=== PATIENT | female | born 1955 | race Caucasian/White ===

== ENCOUNTER 2023-11-13 01:51 | Day surgery (SDC) | payer MEDICARE, SELFPAY ==
--- NOTE | 2023-11-06 09:38 | PC.NURSE ---
Report to the Outpatient Waiting Room, entrance under the green pavilion located off [facility], at time 1045 on date _11/13/23 . Planned Procedure Time: __1245 . Time changes happen often and if your time is changed the preop area will call you the afternoon before. - You and your visitor will be asked to self-screen and do not enter if you have any COVID symptoms. - A mask is optional within the hospital at this time. Patients may have clear liquids (water, carbonated beverages, clear teas, apple juice) until 3 hours prior to surgery ( 9:45 AM )with a maximum of 20 ounces. - No food from midnight until time of surgery - Infants may have breast milk until 4 hours before surgery, infant formula 6 hours prior to surgery. - Children will be allowed to drink immediately following surgery. If applicable, please bring a bottle or sippy cup to assist with drinking. Juice, water, soda, and popsicles are readily available. For infants on formula, please bring formula the day of surgery. Pacifiers are allowed. Take the following medications with a SIP of water the morning of surgery: __NONE DO NOT STOP ANY OF YOUR OTHER PRESCRIPTION MEDICATIONS PRIOR TO SURGERY ?EXCEPT THE FOLLOWING Medications to discontinue per physician __PT STATES LAST DOSE ASPIRIN 10/29/23 (STOPPED ON HER OWN) ALL VITAMINS AND SUPPLEMENTS 3 DAYS PRE OP LAST DOSE 11/09/23 Please no make-up, nail urdu, hairspray, perfume, deodorant, or body powder the day of surgery. No jewelry (including any body piercings) or valuables the day of surgery, leave them at home. Please take a shower or bath the night before, or the morning of, surgery with an antibacterial soap. Wear comfortable, loose fitting clothing. Children are encouraged to wear pajamas. - Jewelry must be removed prior to entering the operating room. Rings and piercings that are not removed may be cut off. - The hospital will not accept responsibility for valuables. - Please leave all valuables, including medications, at home the day of surgery. If you are going home after surgery, a licensed truss driver helper must drive you home. - NO public transportation without another adult if you receive anesthesia. - We recommend that an adult stay with you for 24 hours following discharge. - We also recommend that you do not drive, make important decision, drink alcoholic beverages, or take any drugs that were not prescribed by your health care provider for at least 24 hours after your discharge time. For Pediatric surgeries, we recommend two adults accompany the child home. Follow any additional instructions given to you from your surgeon. If you or anyone in your household have experienced Covid symptoms in the past week, please notify your surgeon or the nurse liaison at the phone number below for possible testing. Telephone instructions given to __PATIENT and asked if any additional questions and then verbalized understanding. Patient advised to call surgeon office or pre surgery nurse liaison [phone] if any additional questions.
[2023-11-06 09:50] VITALS: BMI 33.8
--- NOTE | 2023-11-13 08:16 | WPDHPUPDATE1 ---
History and Physical Update Update Date/Time: 11/13/23 08:16 History and Physical has been reviewed, including an updated exam of the patient. There are NO changes in the patient's condition. Risks, benefits, and alternatives have been discussed and questions answered. Patient agrees to proceed with procedure.
--- NOTE | 2023-11-13 08:16 | PM.HPGS ---
History of Present Illness History of Present Illness Consent: Risks, benefits, and alternatives have been discussed and questions answered. Patient agrees to proceed with procedure. Chief complaint: post menopausal bleeding Narrative: Isela Monroe is a 68 year old female with 2 episodes of very light vaginal bleeding. Pelvic ultrasound showed an irregular heterogeneous echotexture measuring 1.5cm with vascular flow. It was recommended to undergo D&C hysteroscopy for further evaluation. Possible pathology was discussed. Risks of infection, bleeding, perforation, and fluid imbalance are reviewed. Patient voices understanding and agrees to proceed. Review of Systems Review of Systems: not repeated day of surgery; patient states no changes in status [facility] Past Medical History Medical History (Updated 11/13/23 @ 08:23 by Anuja Jordan MD) Breast cancer 1998 status post right mastectomy, chemotherapy, radiation, and 5 years of tamoxifen Elevated cholesterol Lichen sclerosus Surgical History Surgical History (Updated 11/13/23 @ 08:20 by Anuja Jordan MD) H/O right mastectomy 1998 Family History Family History (Updated 05/20/16 @ 23:19 by DOCTOR UNKNOWN) Father Family history of diabetes mellitus in first degree relative Sibling Family history of lung cancer Social History Social History Smoking packs per day: 1 Smoking cigarettes per day: 20.0 Years smoked: 20 Smoking pack-years: 20.00 Smoking status: Former smoker Tobacco type: cigarettes Smoking end date: 10/23/99 Alcohol intake: current Living arrangements: with family Spiritual care concerns: No Meds Home Medications and Allergies Home Medications Medication Instructions Recorded Confirmed Type aspirin 81 mg tablet,delayed 81 mg PO DAILY 11/06/23 11/06/23 History release calcium carbonate 600 mg-vitamin 1 tablet PO BID 11/06/23 11/06/23 History D3 10 mcg (400 unit) tablet (Calcium 600 + D(3)) cholecalciferol (vitamin D3) 25 25 mcg PO DAILY 11/06/23 11/06/23 History mcg (1,000 unit) tablet gabapentin 100 mg capsule 100 mg PO PRN PRN RESTLESS LEG 11/06/23 11/06/23 History SYNDROME ukzqfwqb-iffl-sale 8 mg-folic 400 1 tablet PO DAILY 11/06/23 11/06/23 History mcg-K 50 mcg-lutein 300 mcg tablet (Centrum Silver Women) rosuvastatin 10 mg tablet 10 mg PO EVERY OTHER DAY 11/06/23 11/06/23 History selenium 200 mcg tablet 200 mcg PO DAILY 11/06/23 11/06/23 History zinc 50 mg tablet 50 mg PO DAILY 11/06/23 11/06/23 History Allergies Allergy/AdvReac Type Severity Reaction Status Date / Time penicillin G Allergy Unknown Rash Verified 11/06/23 09:18 Exam Const: General: healthy appearing and alert Orientation/consciousness: patient oriented x3 Resp: Effort & Inspection: normal respiratory effort GI: GI Palp: Yes Soft to palpation, No Tenderness to palpation present (GI) and No Palpable mass present : External Female Exam: other ( bilateral labial melting) Speculum Exam - Vagina: vagina atrophic Speculum Exam - Cervix: normal appearance of the cervix Bimanual exam- vagina & uterus: uterine size normal and consistency normal Bimanual Exam- Adnexa, other: normal adnexae and No adnexal tenderness Neuro: General: patient oriented x3 Assessment and Plan Assessment and plan (1) Post-menopausal bleeding: Code(s): N95.0 - Postmenopausal bleeding Status: Acute Assessment and Plan: plan to proceed D&C hysteroscopy
[2023-11-13 09:47] VITALS: BP 150/79; PULSE 89; RESP 18; TEMP 36.6; O2SAT 99
[2023-11-13] MEDS: LACTATED RINGERS 1,000 ML 30 ML IV CONT (09:59)
[2023-11-13] MEDS: ACETAMINOPHEN 500 MG TABLET 1000 MG PO (10:06)
--- NOTE | 2023-11-13 10:08 | WPDANESEPPF ---
Anes - Initial Pre Proc Eval Procedure: Operation Date: 11/13/23 12:00 Proposed Procedures p Hysteroscopy Dilation and Curettage - Anuja Jordan MD Date/Time: 11/13/23 10:08 Surgeon: Anuja Jordan MD Pre Op Diagnosis: post menopausal bleeding Patient Data Age: 68 Gender: F Height: 1.57 m Weight: 91.85 kg Last Vital Signs Temp 36.6 C 11/13/23 09:47 Pulse 89 11/13/23 09:47 Resp 18 11/13/23 09:47 BP 150/79 H 11/13/23 09:47 Pulse Ox 99 11/13/23 09:47 O2 Del Method Room Air 11/13/23 09:47 Allergies Allergy/AdvReac Type Severity Reaction Status Date / Time penicillin G Allergy Unknown Rash Verified 11/13/23 10:05 Home Medications Medication Instructions Recorded Confirmed Type aspirin 81 mg tablet,delayed 81 mg PO DAILY 11/06/23 11/13/23 History release calcium carbonate 600 mg-vitamin 1 tablet PO BID 11/06/23 11/13/23 History D3 10 mcg (400 unit) tablet (Calcium 600 + D(3)) cholecalciferol (vitamin D3) 25 25 mcg PO DAILY 11/06/23 11/13/23 History mcg (1,000 unit) tablet gabapentin 100 mg capsule 100 mg PO PRN PRN RESTLESS LEG 11/06/23 11/13/23 History SYNDROME pzadwpna-ivcj-wsgc 8 mg-folic 400 1 tablet PO DAILY 11/06/23 11/13/23 History mcg-K 50 mcg-lutein 300 mcg tablet (Centrum Silver Women) rosuvastatin 10 mg tablet 10 mg PO EVERY OTHER DAY 11/06/23 11/13/23 History selenium 200 mcg tablet 200 mcg PO DAILY 11/06/23 11/13/23 History zinc 50 mg tablet 50 mg PO DAILY 11/06/23 11/13/23 History Patient hx anesthesia problems: none Family hx anesthesia problems: none Results Review: All pre-operative results and documents have been reviewed as part of the pre-operative evaluation. [facility] Past Medical History Medical History Breast cancer 1999 status post right mastectomy, chemotherapy, radiation, and 5 years of tamoxifen Elevated cholesterol Lichen sclerosus Surgical History Surgical History H/O right mastectomy 1998 Family History Family History Father Family history of diabetes mellitus in first degree relative Sibling Family history of lung cancer Social History Social History Smoking packs per day: 1 Smoking cigarettes per day: 20.0 Years smoked: 20 Smoking pack-years: 20.00 Smoking status: Former smoker Tobacco type: cigarettes Smoking end date: 10/23/99 Alcohol intake: current Living arrangements: with family Spiritual care concerns: No Anes - Eval Final PreProcedure Day of Procedure 11/13/23 10:08 Patient weight: obese Heart: regular rate and rhythm Lungs: clear to auscultation Airway: Mallampati scale class II Neurological: alert and oriented Last oral intake: >/= 8 hours ASA classification: III Emergent: no Anesthetic plan: proceed Anesthesia type and monitoring: general GIVS and standard monitoring Results Review: All pre-operative results and documents have been reviewed as part of the pre-operative evaluation. Informed Consent: The patient's anesthetic plan and its attendant risks and benefits were discussed with the patient/family/POA. Questions were solicited and answers provided to the satisfaction of the patient/family/POA.
[2023-11-13 11:11] VITALS: BP 115/80; PULSE 95; RESP 12; O2SAT 95
--- NOTE | 2023-11-13 11:15 | W.PM.PROC2 ---
Procedure Note - Detailed Date of Procedure 11/13/23 Pre-op Diagnosis post menopausal bleeding Post-op Diagnosis Same Procedure Performed D&C hysteroscopy with resection of polyps Surgeon Anuja Jordan MD Anesthesia MAC Findings The uterus sounds to 9cm. There are multiple, vascular, translucent polyps. The endometrium appears grossly atrophic otherwise. Description of Procedure The patient is taken to the operating room and placed under anesthesia in the dorsal lithotomy position. She was prepped and draped in the usual sterile fashion. [place] speculum was placed in the vagina and the cervix grasped on the anterior lip with a tenaculum. The uterus is sounded to 9cm. The hysteroscope was placed and with the above-stated findings the Aveeta resection device is placed. All polyps are removed under direct visualization. The hysteroscope was then removed and the uterus was sharply curetted until a good uterine cry was noted in all areas. Minimal material is obtained during this process consistent with the visual appearance. All instruments were then removed. The patient was awakened from anesthesia and taken to recovery in stable condition. Sponge, needle, and instrument counts are correct per the OR staff. Estimated Blood Loss 5 Drains No Packing No Pathology Yes ( endometrial shavings and curettings) Complications No immediate complications Condition Stable Disposition PACU
[2023-11-13 11:45] VITALS: BP 121/65; PULSE 73; RESP 16
== END 2023-11-13 12:10 | disposition home or self-care (01) ==
PROVIDERS: PCP Family Medicine; Visit Provider Obstetrics & Gynecology Gynecology
PROC: 0U5B8ZZ Destruction of Endometrium, Via Natural or Artificial Opening Endoscopic (ICD-10-PCS; CPT 58563; principal; 2023-11-13 12:00)
DX: N95.0 Postmenopausal bleeding (principal); N84.0 Polyp of corpus uteri; E78.00 Pure hypercholesterolemia, unspecified; E66.9 Obesity, unspecified; Z68.37 Body mass index [BMI] 37.0-37.9, adult; Z90.11 Acquired absence of right breast and nipple; Z87.891 Personal history of nicotine dependence; Z85.3 Personal history of malignant neoplasm of breast; Z80.1 Family history of malignant neoplasm of trachea, bronchus and lung; Z79.82 Long term (current) use of aspirin
CPT/HCPCS: 58558; 88305; A9270; J1100; J2250; J2405; J2704; J3010; J7120

== ENCOUNTER 2024-08-02 13:26 | Outpatient (CLI) | payer MEDICARE, OTHER, SELFPAY ==
--- NOTE | 2024-08-02 13:44 | ECG_ITS ---
Test Date: 2024-08-02 13:48:53 Measurements Intervals [place] Rate: 82 P: 44 TN: 140 QRS: -4 QRSD: 85 T: 25 QT: 381 QTc: 445 Interpretive Statements SINUS RHYTHM LOW QRS VOLTAGE IN PRECORDIAL LEADS [QRS DEFLECTION < 1.0 mV IN CHEST LEADS] Poor R wave progression No previous ECG available for comparison Electronically Signed On 08-03-2024 08:23:19 CDT by Valerie Doty M.D.
== END 2024-08-02 13:27 | disposition home or self-care (01) ==
LOC: ANHSURGERY 13:32
PROVIDERS: PCP Family Medicine; Visit Provider Obstetrics & Gynecology
DX: E78.5 Hyperlipidemia, unspecified (principal)
CPT/HCPCS: 93005

== ENCOUNTER 2024-08-07 02:26 | Day surgery (SDC) | payer MEDICARE, OTHER, SELFPAY ==
[2024-08-01 13:09] VITALS: BMI 36.6
--- NOTE | 2024-08-01 13:16 | PC.NURSE ---
Report to the Outpatient Waiting Room, entrance under the green pavilion located off [facility], at time _0630_ on date _[id number]_. Planned Procedure Time: _0830_.? Time changes happen often and if your time is changed the preop area will call you the afternoon before. - You and your visitor will be asked to self-screen and do not enter if you have any COVID symptoms. Please call surgeon if you need to reschedule. - A mask is optional within the hospital at this time. Patients may have clear liquids (water, carbonated beverages, clear teas, apple juice) until 3 hours prior to surgery with a maximum of 20 ounces. - No food from midnight until time of surgery and no smoking Take only the following medications with a SIP of water on the morning of surgery: __None DO NOT STOP ANY OF YOUR OTHER PRESCRIPTION MEDICATIONS PRIOR TO SURGERY EXCEPT THE FOLLOWING Medications to discontinue per physician ___All vitamins Date to take last vakb___[id number] Hurd's office regarding Aspirin. Please no make-up, nail georgian, hairspray, perfume, deodorant, or body powder the day of surgery.? No jewelry (including any body piercings) or valuables the day of surgery, leave them at home.? Please take a shower or bath the night before, or the morning of, surgery with an antibacterial soap.? Wear comfortable, loose fitting clothing.? - Jewelry must be removed prior to entering the operating room.? Rings and piercings that are not removed may be cut off. - The hospital will not accept responsibility for valuables.? - Please leave all valuables, including medications, at home the day of surgery. If you are going home after surgery, a licensed light truck driver must drive you home.? - NO public transportation without another adult if you receive anesthesia. - We recommend that an adult stay with you for 24 hours following discharge. - We also recommend that you do not drive, make important decision, drink alcoholic beverages, or take any drugs that were not prescribed by your health care provider for at least 24 hours after your discharge time. Follow any additional instructions given to you from your surgeon. Telephone instructions given to __Isela___and asked if any additional questions and then verbalized understanding. Patient advised to call surgeon office or pre surgery nurse liaison [phone] if any additional questions.
[2024-08-07] VITALS (9 sets, daily range): BP systolic 113–139; BP diastolic 51–76; PULSE 70–89; RESP 14–20; TEMP 36.2–36.4; O2SAT 92–100
[2024-08-07] MEDS: ACETAMINOPHEN 500 MG TABLET 1000 MG PO (06:50)
[2024-08-07] MEDS: LACTATED RINGERS 1,000 ML 30 ML IV CONT (07:04)
--- NOTE | 2024-08-07 07:47 | WPDANESEPPF ---
Anes - Initial Pre Proc Eval Procedure: Operation Date: 08/07/24 08:30 Proposed Procedures p Laparoscopic Left Salpingo-oophorectomy - Abelardo Hurd MD Date/Time: 08/07/24 07:47 Surgeon: Abelardo Hurd MD Pre Op Diagnosis: Cyst Left Ovary Patient Data Age: 69 Gender: F Height: 1.57 m Weight: 93.4 kg Last Vital Signs Temp 36.2 C L 08/07/24 07:05 Pulse 89 08/07/24 07:05 Resp 16 08/07/24 07:05 BP 139/76 08/07/24 07:05 Pulse Ox 98 08/07/24 07:05 O2 Del Method Room Air 08/07/24 07:05 Allergies Allergy/AdvReac Type Severity Reaction Status Date / Time penicillin G Allergy Unknown Rash Verified 08/07/24 06:47 Home Medications Medication Instructions Recorded Confirmed Type aspirin 81 mg tablet,delayed 81 mg PO DAILY 11/06/23 08/07/24 History release calcium 600 mg (as 1 tablet PO BID 11/06/23 08/07/24 History carbonate)-vitamin D3 10 mcg (400 unit) tablet (Calcium 600 + D(3)) cholecalciferol (vitamin D3) 25 25 mcg PO DAILY 11/06/23 08/07/24 History mcg (1,000 unit) tablet gabapentin 100 mg capsule 100 mg PO PRN PRN RESTLESS LEG 11/06/23 08/07/24 History SYNDROME wagztidd-bhwv-avlx 8 mg-folic 400 1 tablet PO DAILY 11/06/23 08/07/24 History mcg-K 50 mcg-lutein 300 mcg tablet (Centrum Silver Women) rosuvastatin 10 mg tablet 10 mg PO EVERY OTHER DAY 11/06/23 08/07/24 History magnesium 250 mg tablet 250 mg PO DAILY 08/01/24 08/07/24 History Patient hx anesthesia problems: none Family hx anesthesia problems: none Results Review: All pre-operative results and documents have been reviewed as part of the pre-operative evaluation. [facility] Past Medical History Medical History Breast cancer 1999 status post right mastectomy, chemotherapy, radiation, and 5 years of tamoxifen Elevated cholesterol Lichen sclerosus Surgical History Surgical History H/O right mastectomy 1998 Family History Family History Father Family history of diabetes mellitus in first degree relative Sibling Family history of lung cancer Social History Social History Smoking packs per day: 1 Smoking cigarettes per day: 20.0 Years smoked: 20 Smoking pack-years: 20.00 Smoking status: Former smoker Tobacco type: cigarettes Smoking end date: 08/01/09 Alcohol intake: current Substance use type: marijuana Other substance usage details: cbd gummie at night not daily. Living arrangements: with family Spiritual care concerns: No Anes - Eval Final PreProcedure Day of Procedure 08/07/24 07:47 Patient weight: obese Heart: regular rate and rhythm Lungs: clear to auscultation Airway: Mallampati scale class II Neurological: alert and oriented Last oral intake: >/= 8 hours ASA classification: III Emergent: no Anesthetic plan: proceed Anesthesia type and monitoring: general ETT and standard monitoring Results Review: All pre-operative results and documents have been reviewed as part of the pre-operative evaluation. Informed Consent: The patient's anesthetic plan and its attendant risks and benefits were discussed with the patient/family/POA. Questions were solicited and answers provided to the satisfaction of the patient/family/POA.
[2024-08-07] MEDS: KETOROLAC 15 MG/ML VIAL (*BKC) IV PUSH (07:57)
--- NOTE | 2024-08-07 08:06 | PM.IMHP ---
H&P: HPI History of Present Illness Date/Time: 08/07/24 08:06 Chief Complaint: Ovarian cyst Narrative: 61-year-old female with left ovarian cyst. We have agreed to perform left salpingo-oophorectomy. The patient understands the details of the procedure. The procedure has been explained in detail. She understands the risks. She understands that injuries may occur that result in hospitalization, more surgery, and severe illness. She understands risk of hemorrhage and infection. She denies any chest pain or shortness of breath. She denies any nausea, vomiting, fever, chills. Review of Systems Review of Systems: All systems reviewed & are unremarkable except as noted in HPI and below Constitutional: Constitutional: Denies chills, Denies fatigue, Denies fever(s) and Denies weakness Eyes: Eyes: Denies blurry vision, Denies change in vision, Denies loss of peripheral vision, Denies loss of vision, Denies other visual disturbances and Denies eye pain ENT: Denies vertigo, Denies dizziness, Denies hearing loss, Denies mouth pain, Denies nasal obstruction, Denies neck mass and Denies neck pain Cardiovascular: Cardiovascular: Denies chest pain, Denies diaphoresis, Denies syncope, Denies leg edema and Denies dyspnea Respiratory: Respiratory: Denies chest congestion, Denies cough, Denies hemoptysis, Denies dyspnea and Denies wheezing Gastrointestinal: Gastrointestinal: Denies abdominal pain, Denies constipation, Denies diarrhea, Denies nausea and Denies vomiting Genitourinary: Genitourinary: Denies hematuria, Denies change in libido, Denies nocturia, Denies genital lesions, Denies flank pain and Denies urinary urgency Musculoskeletal: Musculoskeletal: Denies abnormal gait, Denies back pain, Denies myalgias, Denies arthralgias, Denies joint swelling, Denies muscle weakness and Denies neck pain Integumentary/Breasts: Skin/Breast: Denies swelling, Denies breast pain, Denies breast mass, Denies dry skin, Denies nipple discharge, Denies unusual bruising and Denies jaundice Neurologic: Denies Neuro-related abnormal movements, Denies Abnormal speech present, Denies abnormal gait, Denies behavioral changes, Denies confusion, Denies vertigo, Denies dizziness, Denies syncope, Denies loss of vision, Denies memory loss, Denies convulsions and Denies weakness Psychiatric: Psychiatric: Denies abnormal sleep pattern, Denies behavioral changes, Denies change in libido, Denies confusion, Denies depression, Denies anhedonia and Denies memory loss Endocrine: Endocrine: Reports no additional endocrine complaints, Denies change in libido and Denies fatigue Hematologic/Lymphatic: Hematologic/Lymphatic: Reports no additional hematologic/lymphatic complaints Allergic/Immunologic: Allergic/Immunologic: Reports no additional allergic/immunologic complaints and Denies wheezing PMFSH Past Medical History Medical History Breast cancer 1998 status post right mastectomy, chemotherapy, radiation, and 5 years of tamoxifen Elevated cholesterol Lichen sclerosus Surgical History Surgical History H/O right mastectomy 1998 Family History Family History Father Family history of diabetes mellitus in first degree relative Sibling Family history of lung cancer Social History Social History Smoking packs per day: 1 Smoking cigarettes per day: 20.0 Years smoked: 20 Smoking pack-years: 20.00 Smoking status: Former smoker Tobacco type: cigarettes Smoking end date: 08/01/09 Alcohol intake: current Substance use type: marijuana Other substance usage details: cbd gummie at night not daily. Living arrangements: with family Spiritual care concerns: No Meds Home Medications and Allergies Home Medications Medication Instruct
--- NOTE | 2024-08-07 08:11 | WPDHPUPDATE1 ---
History and Physical Update Update Date/Time: 08/07/24 08:11 History and Physical has been reviewed, including an updated exam of the patient. There are NO changes in the patient's condition. Risks, benefits, and alternatives have been discussed and questions answered. Patient agrees to proceed with procedure.
--- NOTE | 2024-08-07 09:22 | W.PM.PROC2 ---
Procedure Note - Detailed Date of Procedure 08/07/24 Pre-op Diagnosis Cyst Left Ovary Post-op Diagnosis Same Procedure Performed Laparoscopic left salpingo-oophorectomy Surgeon Abelardo Hurd MD Anesthesia General Indications Pelvic pain Description of Procedure The patient was taken to the operating room. She was prepped and draped in the dorsal lithotomy position after induction general anesthesia. A 5 mm incision was made with a scalpel on the abdominal skin in the left upper quadrant of the abdomen. A 5 mm trocar was inserted into the intra-abdominal cavity under direct visualization the scope. In the same fashion a 11 mm left lower quadrant trocar was inserted and a 11 mm infraumbilical trocar was inserted. who left ovarian salpingo-oophorectomy was performed. The ovary was raised. The the infundibulopelvic ligament was identified, cauterized, transected with LigaSure cautery. The paraovarian tissue was dissected out carefully. Suspensory ligament the ovary the surrounding blood vessels were cauterized transected with LigaSure cautery. The ovaries placed in endobag along with cyst of course. Endobag was opened to the outside of the abdomen through the left lower quadrant trocar site. The fascia had to be expanded to facilitate opening the bag extracorporeally. The cyst was drained. The endobag was removed. The fascia was closed with a Wm-Ana Endoclose device. Single 0 Vicryl suture was used. 6 The pelvis was irrigated. The pneumoperitoneum was reduced. The trocars were removed. Skin was closed with subcuticular 4 micro. The patient's incisions were covered with Dermabond. She was taken recovery room in stable condition. Sponge lap and needle counts were correct x2. Estimated Blood Loss 20 Complications No immediate complications Condition Stable Disposition Same day
--- NOTE | 2024-08-07 09:55 | SUR.PHASEI ---
0953: Simple mask removed.
[2024-08-07] MEDS: oxyCODONE HCL (*CRX) 5 MG TAB IR PO (10:46)
== END 2024-08-07 11:26 | disposition home or self-care (01) ==
PROVIDERS: PCP Family Medicine; Visit Provider Obstetrics & Gynecology
PROC: (CPT 49320; principal; 2024-08-07 08:30)
DX: D27.1 Benign neoplasm of left ovary (principal); N83.02 Follicular cyst of left ovary; E78.00 Pure hypercholesterolemia, unspecified; L90.0 Lichen sclerosus et atrophicus; F12.90 Cannabis use, unspecified, uncomplicated; G89.18 Other acute postprocedural pain; E66.9 Obesity, unspecified; Z68.37 Body mass index [BMI] 37.0-37.9, adult; Z79.82 Long term (current) use of aspirin; Z98.890 Other specified postprocedural states; Z87.891 Personal history of nicotine dependence; Z85.3 Personal history of malignant neoplasm of breast; Z80.1 Family history of malignant neoplasm of trachea, bronchus and lung
CPT/HCPCS: 58661; 88108; 88305; A9270; J0330; J1100; J1885; J2405; J2704; J3010; J7120